=== PATIENT | male | born 1995 | race Caucasian/White ===

== ENCOUNTER 2019-03-08 18:12 | Emergency (ER) | payer SELFPAY ==
[2019-03-08] MEDS ORDERED: Bacitracin Zinc 1 Packet ONE (18:31)
--- NOTE | 2019-03-08 18:57 | RAD ---
Exam: Right shoulder 3 views: HISTORY: [place] [facility] [place] [facility] [place] FINDINGS: There is A/C separation with abnormal widening of the coracoclavicular space. No glenohumeral disloca tion. IMPRESSION: Right A/C separation with abnormal widening of the coracoclavicular space.
--- NOTE | 2019-03-08 19:12 | RAD ---
PORTABLE CHEST: HISTORY: Trauma with chest pain. FINDINGS: Heart size and mediastinum are within normal limits. Lungs are clear of infiltrates. No rib fractur es identified. No signs of pneumothorax. IMPRESSION: Unremarkable chest. POS: [id number]
== END 2019-03-08 19:02 | disposition home or self-care (01) ==
LOC: ERS 18:12
DX: S43.101A Unspecified dislocation of right acromioclavicular joint, initial encounter (principal); S80.02XA Contusion of left knee, initial encounter; V29.9XXA Motorcycle rider (driver) (passenger) injured in unspecified traffic accident, initial encounter
CPT/HCPCS: 71045

== ENCOUNTER → 2019-08-03 | Emergency (ER) | payer SELFPAY | LOC: ERS 14:12 | DX: Z53.21 Procedure and treatment not carried out due to patient leaving prior to being seen by health care provider (principal) ==

== ENCOUNTER 2021-06-10 18:41 | Emergency (ER) | payer SELFPAY ==
[2021-06-10] MEDS ORDERED: HYDROcodone/Acetaminophen 5/325 mg Tablet ONE (18:59)
[2021-06-10] MEDS ORDERED: Lidocaine 1% w/Epinephrine 1:100K 20 ML VIAL ONE (19:11)
== END 2021-06-10 20:37 | disposition home or self-care (01) ==
LOC: ERS 18:41
DX: L02.411 Cutaneous abscess of right axilla (principal)
CPT/HCPCS: 10060

== ENCOUNTER 2021-06-12 02:40 | Inpatient (IN) | payer SELFPAY ==
[2021-06-12 03:30] LABS: #Basophils 0.1 thou/uL (0.0-0.2); #Eosinphils 0.5 thou/uL (0.0-0.7); #Lymphocytes 1.6 thou/uL (1.20-3.40); #Monocytes 1.3 thou/uL (0.11-0.59); #Neutrophils 14.8 thou/uL (1.40-6.50); %Basophils 0.3 % (0.0-1.0); %Eosinophils 2.6 % (0.0-10.0); %Monocytes 6.9 % (0.0-10.0); %Neutrophils 81.3 % (42.0-75.0); Hemoglobin 12.6 g/dL (14.0-18.0); Mean Corpuscular HGB CONC 33.4 g/dL (32.0-36.0); Mean Corpuscular Hemoglobin 31.7 pg (27.0-31.0); Mean Platelet Volume 9.7 fL (7.4-10.4); Platelet Count 221 thou/uL (130-400); RBC Distribution Width 11.7 % (11.5-14.5); Red Blood Cell (RBC) Count 3.98 mill/uL (4.70-6.10); White Blood Cell (WBC) Count 18.2 thou/uL (4.8-10.8)
[2021-06-12 03:38] LABS: INR-International Normal Ratio 1.1; Prothrombin Time 14.1 sec (12.0-14.7)
[2021-06-12 03:39] LABS: PTT 38.1 sec (22.9-36.1)
[2021-06-12 03:52] LABS: ALT (SGPT) 97 U/L (8-55); AST (SGOT) 171 U/L (5-34); Albumin 3.4 g/dL (3.5-5.0); Alkaline Phosphatase 169 U/L (40-110); Anion Gap 12 mmol/L (10-20); BUN (Urea Nitrogen) 14 mg/dL (8.9-20.6); Bilirubin, Total 0.4 mg/dL (0.2-1.2); CK (CPK) 770 U/L (30-200); Calc. Creatinine Clearance 0 mL/min (70-130); Carbon Dioxide 26 mmol/L (22-29); Chloride 101 mmol/L (98-107); Globulin 3.6 g/dL (2.4-3.5); Glucose 115 mg/dL (70-105); Lipase 6 U/L (8-78); Potassium 3.6 mmol/L (3.5-5.1); Sodium 135 mmol/L (136-145)
[2021-06-12] MEDS ORDERED: Lidocaine 1% (PF) 30 ML VIAL ONE (04:25)
[2021-06-12 04:29] LABS: CKMB 100.5 ng/mL (0-6.6)
[2021-06-12] MEDS ORDERED: Aspirin 325 MG TAB ONE (04:37)
[2021-06-12] MEDS ORDERED: Nitroglycerin 100MG/250ML BOT 0 ML ONE (05:10)
[2021-06-12] MEDS ORDERED: Sodium Chloride 0.9% 200 ML IV PRN (05:18)
[2021-06-12] MEDS ORDERED: Acetaminophen/Codeine 30-300mg Tablet PO PRN (05:18)
[2021-06-12] MEDS ORDERED: Sodium Chloride 0.9% 500 ML IV SCH (05:30)
[2021-06-12 06:43] VITALS: BMI 23.7
[2021-06-12 07:52] LABS: Acetaminophen Less than 6.0 mcg/mL (10.0-30.0); Alcohol Less than 10 mg/dL (Less than 10)
[2021-06-12 08:11] LABS: HIV (1/2) Antibody/Antigen Non-Reactive (NonReactive); HIV 1/2 INDEX 0.18 S/CO (<1.00)
[2021-06-12] MEDS ORDERED: Iopamidol 370 76% 100 ML VIAL ONE (08:59)
[2021-06-12] MEDS ORDERED: Iopamidol 370 76% 50 ML VIAL FS ONE (08:59)
[2021-06-12] MEDS ORDERED: Sulfameth/Trimethoprim DS 800-160mg TAB PO SCH (09:00)
[2021-06-12 09:55] LABS: Amphetamine Detected (NotDetected); Barbiturates Screen Not Detected (NotDetected); Benzodiazepine Screen Not Detected (NotDetected); Cocaine Metabolite Screen Not Detected (NotDetected); Methadone Not Detected (NotDetected); Methamphetamine Detected (NotDetected); Opiate Screen Detected (NotDetected); Oxycodone Screen Not Detected (NotDetected); Phencyclidine (PCP) Not Detected (NotDetected); THC/Cannabinoid Screen Not Detected (NotDetected); Tricyclic Screen Not Detected (NotDetected)
[2021-06-12 10:59] LABS: CKMB 93.4 ng/mL (0-6.6)
[2021-06-12] MEDS ORDERED: Acetaminophen/Codeine 30-300mg Tablet ONE (11:14)
[2021-06-12 13:32] LABS: SARS-CoV-2 PCR by NAA Not Detected (NotDetected)
[2021-06-12 15:19] LABS: CKMB 99.6 ng/mL (0-6.6)
[2021-06-12 18:25] VITALS: BP 120/79; TEMP 98.2
[2021-06-12] MEDS ORDERED: Clindamycin 150 MG CAP PO SCH ×2 (18:45→21:00)
[2021-06-13] MEDS ORDERED: Lisinopril 2.5 MG TAB PO SCH (09:00)
== END 2021-06-12 20:14 | disposition left against medical advice (07) | DRG 282 ==
LOC: ERS 02:40 → SURG A 05:18 → 2NO 18:15
PROVIDERS: ADMIT Internal Medicine Cardiovascular Disease; ATTEND Internal Medicine Cardiovascular Disease
PROC: 4A023N7 Measurement of Cardiac Sampling and Pressure, Left Heart, Percutaneous Approach (ICD-10-PCS; principal; 2021-06-12)
PROC: B2111ZZ Fluoroscopy of Multiple Coronary Arteries using Low Osmolar Contrast (ICD-10-PCS; 2021-06-12)
DX: I21.3 ST elevation (STEMI) myocardial infarction of unspecified site (principal); F19.10 Other psychoactive substance abuse, uncomplicated; R94.5 Abnormal results of liver function studies
CPT/HCPCS: 36415; 71045; 71275; 76705; 80053; 80143; 80306; 80307; 82550; 82553; 83690; 83880; 84484; 85025; 85610; 85730; 86850; 86900; 86901; 87040; 87389; 93005; 93306; 93454; C1769; J2001; Q9967; U0003; U0005

== ENCOUNTER 2021-08-28 12:51 | Emergency (ER) | payer OTHER, SELFPAY | END 2021-08-28 14:30 | disposition home or self-care (01) | LOC: ERS 12:51 | DX: S42.022A Displaced fracture of shaft of left clavicle, initial encounter for closed fracture (principal); I10 Essential (primary) hypertension; V98.8XXA Other specified transport accidents, initial encounter ==

== ENCOUNTER 2021-09-02 12:34 | Outpatient (CLI) | payer SELFPAY ==
[2021-09-03 00:49] LABS: SARS-CoV-2 PCR by NAA Not Detected (NotDetected)
== END 2021-09-02 12:35 | disposition home or self-care (01) ==
LOC: LABBT 12:34
PROVIDERS: ATTEND Orthopaedic Surgery
DX: Z01.812 Encounter for preprocedural laboratory examination (principal); Z20.822 Contact with and (suspected) exposure to COVID-19
CPT/HCPCS: U0003; U0005

== ENCOUNTER 2021-09-04 12:40 | Day surgery (SDC) | payer OTHER ==
[2021-09-03 11:04] VITALS: BMI 23.7
[2021-09-04] MEDS ORDERED: Fentanyl 250 MCG/5 ML VIAL ONE (14:49)
[2021-09-04] MEDS ORDERED: PROPOFOL 200 MG/20 ML VIAL ONE (15:04)
[2021-09-04] MEDS ORDERED: Ondansetron PF 4 MG/2 ML Vial ONE (15:04)
[2021-09-04] MEDS ORDERED: Lidocaine 1% PF 5 ML VIAL ONE (15:04)
[2021-09-04] MEDS ORDERED: Ketorolac Tromethamine 30 MG/ML VIAL ONE (15:04)
[2021-09-04] MEDS ORDERED: Rocuronium Bromide 10 MG/ML (10ML VIAL) ONE (15:04)
[2021-09-04] MEDS ORDERED: Glycopyrrolate 0.2 MG/ML 5 ML SYRINGE ONE (15:04)
[2021-09-04] MEDS ORDERED: Dexamethasone 20 MG/5 ML VIAL ONE (15:04)
[2021-09-04] MEDS ORDERED: HYDROmorphone 2 MG/ML VIAL ONE (16:01)
[2021-09-04] MEDS ORDERED: Bupivacaine PF 0.5% 30 ML VIAL ONE (16:03)
[2021-09-04] MEDS ORDERED: Morphine 4 MG/ML VIAL ONE (18:14)
[2021-09-04] MEDS ORDERED: HYDROcodone/Acetaminophen 5/325 mg Tablet ONE (19:04)
== END 2021-09-04 20:45 | disposition home or self-care (01) ==
LOC: SDC 12:40
PROVIDERS: ATTEND Orthopaedic Surgery
PROC: 0PSB04Z Reposition Left Clavicle with Internal Fixation Device, Open Approach (ICD-10-PCS; principal; 2021-09-04)
DX: S42.002A Fracture of unspecified part of left clavicle, initial encounter for closed fracture (principal); F17.200 Nicotine dependence, unspecified, uncomplicated; Z88.2 Allergy status to sulfonamides; Z91.040 Latex allergy status; V89.2XXA Person injured in unspecified motor-vehicle accident, traffic, initial encounter
CPT/HCPCS: 76000; C1713; J1100; J1170; J1885; J2270; J2405; J2704; J3010; S0020